=== PATIENT | female | born 1990 | race American Indian/Alaskan Native ===

== ENCOUNTER 2020-05-13 21:16 | Emergency (ER) | payer SELFPAY ==
[2020-05-13 21:30] VITALS: BP 144/85
[2020-05-13] MEDS ORDERED: Lidocaine 1% 10 ML MDV INJECT ONE (21:36)
[2020-05-13] MEDS ORDERED: Bupivacaine 0.5% 10 ML SDV INJECT ONE (21:36)
[2020-05-13] MEDS ORDERED: LORazepam 2 MG/ML SDV IVPUSH ONE (21:37)
[2020-05-13] MEDS ORDERED: cefTRIAXone 1 GM in Sodium Chloride 0.9% 100 ML IV ONE (21:38)
--- NOTE | 2020-05-13 21:40 | EDM.PDOC ---
<Frances Mesa - Last Filed: 05/13/20 22:39> ED HPI GENERAL MEDICAL PROBLEM - General Chief Complaint: Upper Extremity Injury/Pain Stated Complaint: SMASHED FINGER IN CAR DOOR Time Seen by Provider: 05/13/20 21:18 - Related Data Allergies Allergy/AdvReac Type Severity Reaction Status Date / Time Sulfa (Sulfonamide Allergy Other Verified 05/13/20 21:25 Antibiotics) Home Meds: Home Meds Hydrocodone/Acetaminophen [Hydrocodone-Acetamin 5-325 mg] 1 each PO Q6H PRN #15 tablet 05/13/20 [Rx] cephALEXin [Keflex] 500 mg PO TID #21 capsule 05/13/20 [Rx] ED TRAUMA EXTREMITY PROCEDURES - Laceration/Wound Repair Left Distal Digit - 2nd (Index) Lac/Wound Length In cm: 3 Appearance: Subcutaneous, Clean Distal NVT: Neuro & Vascular Intact, No Tendon Injury Anesthetic Type: Digital Local Anesthesia - Lidocaine (Xylocaine): 1% Plain Local Anesthesia - Bupivicaine (Marcaine): 0.5% Plain Local Anesthetic Volume: 4cc Skin Prep: Chlorhexidine (Hibiciens), Saline, Sterile Drape Exploration/Debridement/Repair: Wound Explored, In a Bloodless Field, No Foreign Material Found Closed With: Sutures Suture Size: 4-0 # of Sutures: 6 Suture Type: Nylon Sterile Dressing Applied: Nurse Tetanus Status Addressed: Yes Complications: No Departure - Departure Disposition: Home, Self-Care 01 Clinical Impression: Open fracture of tuft of distal phalanx of finger Laceration of left index finger w/o foreign body with damage to nail Qualifiers: Encounter type: initial encounter Qualified Code(s): S61.311A - Laceration without foreign body of left index finger with damage to nail, initial encounter - Discharge Information Prescriptions: Hydrocodone/Acetaminophen [Hydrocodone-Acetamin 5-325 mg] 1 each PO Q6H PRN #15 tablet PRN Reason: Pain cephALEXin [Keflex] 500 mg PO TID #21 capsule Instructions: Laceration Care, Adult, [id number] Referrals: PCP,None [Primary Care Provider] - Forms: ED Department Discharge Additional Instructions: The dressing on there for at least 24 hours after which you may take it off after soaking it and then reapply the dressing to keep it clean, replace the splint to protect that tip of the finger where you have the fracture, take the Keflex 3 times a day for the next 7 days to make sure the laceration and fracture do not get infected, take the hydrocodone as needed for pain, follow-up with your family doctor in 7 to 10 days for suture removal and linda-ray, return t o the ER if needed <Juan Diego Erickson - Last Filed: 05/13/20 23:04> ED HPI GENERAL MEDICAL PROBLEM - General Source of Information: Reports: Patient History Limitations: Reports: No Limitations - History of Present Illness INITIAL COMMENTS - FREE TEXT/NARRATIVE: Is a 30-year-old female. This evening she got her left index finger caught in a car door when it was slammed shut causing a laceration to the tip of her finger. The nail and the dorsal half of that distal phalanx is slid off to the side and there is a laceration on the radial side with a nail pushed to the ulnar side. I do not see any obvious bone however I am sure it is involved. It is not certain whether she is up-to-date with her tetanus but she does not want to get it until her aunt is here. Left Finger-Index Pain Score (Numeric/FACES): 10 Past Medical History - Past Health History Medical/Surgical History: Denies Medical/Surgical History Social & Family History - Tobacco Use Tobacco Use Status *Q: Current Every Day Tobacco User Years of Tobacco use: 3 Packs/Tins Daily: 0.3 - Caffeine Use Caffeine Use: Reports: Soda - Recreational Drug Use Recreational Drug Use: Yes Drug Use in Last 12 Months: Yes Recreational Drug Type: Reports: Marijuana/Hashish Recreational Drug Use Frequency: Socially - Living Situation & Occupation Living situation: Reports: Single, Alone Review of Systems - Review of Systems Review Of Systems: See Below Constitutional: Reports: No Symptoms Eyes: Reports: No Symptoms Ears: Reports: No Symptoms Nose: Reports: No Symptoms Mouth/Throat: Reports: No Symptoms Respiratory: Reports: No Symptoms Cardiovascular: Reports: No Symptoms GI/Abdominal: Reports: No Symptoms Genitourinary: Reports: No Symptoms Musculoskeletal: Reports: Other (As per HPI) Skin: Reports: No Symptoms Neurological: Reports: No Symptoms Psychiatric: Reports: No Symptoms ED EXAM, GENERAL - Physical Exam Exam: See Below Exam Limited By: No Limitations General Appearance: Alert, WD/WN, Anxious Eye Exam: Bilateral Eye: Normal Inspection Ears: Normal External Exam Throat/Mouth: Normal Voice, No Airway Compromise Head: Normocephalic Neck: Supple Respiratory/Chest: No Respiratory Distress, Lungs Clear, Normal Breath Sounds Cardiovascular: Regular Rate, Rhythm, No Murmur, Tachycardia Back Exam: Full Range of Motion Extremities: Normal Range of Motion, Other (Her left index finger has a partial amputation of the distal tip where the dorsal half of the distal phalanx has a laceration and the nail is pushed off to the ulnar side. She does not appear to have a DIP joint injury. I do not see any bone at this time but I am sure the tuft is involved. There is no other acute findings noted.) Neurological: Alert, Oriented Psychiatric: Anxious Skin Exam: Warm, Dry Course - Vital Signs Last Recorded V/S: Last Vital Signs Temp 97.2 F 05/13/20 21:26 Pulse 135 H 05/13/20 21:26 Resp 18 05/13/20 21:26 BP 144/85 H 05/13/20 21:26 Pulse Ox 96 05/13/20 21:26 - Orders/Labs/Meds Orders: Active Orders 24 hr Category Date Time Status Vaccines to be Administered [RC] PER UNIT ROUTINE Care 05/13/20 22:16 Active Fingers Second Digit Lt F1 [CR] Stat Exams 05/13/20 21:33 Taken Sodium Chloride 0.9% [Normal Saline] 1,000 ml Med 05/13/20 21:45 Active IV ASDIRECTED DME for Discharge [COMM] Routine Oth 05/13/20 22:42 Ordered Medication Orders Sodium Chloride (Normal Saline) 1,000 mls @ 1,000 mls/hr IV ASDIRECTED BILL Last Admin: 05/13/20 21:53 Dose: 1,000 mls/hr Documented by: [facility] Meds: Medications Generic Name Dose Route Start Last Admin Trade Name Freq PRN Reason Stop Dose Admin Sodium Chloride 1,000 mls @ 1,000 mls/hr 05/13/20 21:45 05/13/20 21:53 Normal Saline IV 1,000 mls/hr ASDIRECTED BILL Administration Discontinued Medications Generic Name Dose Route Start Last Admin Trade Name Freq PRN Reason Stop Dose Admin Bupivacaine HCl 10 ml 05/13/20 21:36 05/13/20 21:55 Sensorcaine-Mpf 0.5% INJECT 05/13/20 21:37 10 ml ONETIME ONE Administration Diphtheria/Tetanus/Acell Pertussis 0.5 ml 05/13/20 22:14 Boostrix IM 05/13/20 22:15 .ONCE ONE Ceftriaxone Sodium 1 gm/ 100 mls @ 200 mls/hr 05/13/20 21:38 05/13/20 21:54 Sodium Chloride IV 05/13/20 22:07 200 mls/hr ONETIME ONE Administration Lidocaine HCl 10 ml 05/13/20 21:36 05/13/20 21:55 Xylocaine 1% INJECT 05/13/20 21:37 10 ml ONETIME ONE Administration Lorazepam 0.5 mg 05/13/20 21:37 05/13/20 21:52 Ativan IVPUSH 05/13/20 21:38 0.5 mg ONETIME ONE Administration - Radiology Interpretation Free Text/Narrative:: The x-ray shows a tuft fracture. It appears to be displaced. - Re-Assessments/Exams Free Text/Narrative Re-Assessment/Exam: 05/13/20 22:58 Patient tolerated the suturing well. We will place a dressing and a fingertip splint to protect the tuft fracture. I spoke to her regarding getting the sutures out in 7 to 10 days by her local provider. Will be on some antibiotics since this is an open fracture. Departure - Departure Time of Disposition: 22:59 Condition: Fair - Discharge Information *PRESCRIPTION DRUG MONITORING PROGRAM REVIEWED*: Yes *COPY OF PRESCRIPTION DRUG MONITORING REPORT IN PATIENT DEBORAH: No Sepsis Event Note (ED) - Evaluation Sepsis Screening Result: No Definite Risk - Focused Exam Vital Signs: Vital Signs Temp Pulse Resp BP Pulse Ox 05/13/20 21:26 97.2 F 135 H 18 144/85 H 96 - My Orders Last 24 Hours: My Active Orders 05/13/20 21:33 Fingers Second Digit Lt F1 [CR] Stat 05/13/20 21:45 Sodium Chloride 0.9% [Normal Saline] 1,000 ml IV ASDIRECTED 05/13/20 22:16 Vaccines to be Administered [RC] PER UNIT ROUTINE - Assessment/Plan Last 24 Hours: My Active Orders 05/13/20 21:33 Fingers Second Digit Lt F1 [CR] Stat 05/13/20 21:45 Sodium Chloride 0.9% [Normal Saline] 1,000 ml IV ASDIRECTED 05/13/20 22:16 Vaccines to be Administered [RC] PER UNIT ROUTINE
[2020-05-13] MEDS ORDERED: Sodium Chloride 0.9% 1,000 ML IV SCH (21:45)
[2020-05-13] MEDS ORDERED: Diphtheria,Pertussis(Acell),Tetanus Vaccine 0.5 ML Syringe IM ONE (22:14)
[2020-05-13 23:26] VITALS: PULSE 98
--- NOTE | 2020-05-14 15:52 | CR ---
Left second finger: 4 views centered to the left second finger were obtained. Mildly displaced distal phalanx fracture is noted within the left second finger with adjacent soft tissue injury. No additional bony abnormality is seen proximally. Impression: 1. Displaced distal phalanx fracture with soft tissue swelling. Diagnostic code #3
== END 2020-05-13 23:20 | disposition home or self-care (01) ==
LOC: JD.ED 21:16
DX: S62.631B Displaced fracture of distal phalanx of left index finger, initial encounter for open fracture (principal); Z88.2 Allergy status to sulfonamides; Z23 Encounter for immunization; F17.210 Nicotine dependence, cigarettes, uncomplicated; W23.0XXA Caught, crushed, jammed, or pinched between moving objects, initial encounter
CPT/HCPCS: 12002; 73140; 90471; 90715; 96365; 96375; 99283; J0696; J2001; J2060; J3490; J7030; J7050

== ENCOUNTER 2022-10-25 18:26 | Emergency (ER) | payer SELFPAY ==
[2022-10-25 18:53] VITALS: BP 138/90; PULSE 111
== END 2022-10-25 19:00 ==
LOC: JD.ED 18:26
DX: Z53.21 Procedure and treatment not carried out due to patient leaving prior to being seen by health care provider (principal)